=== PATIENT | female | born 1945 ===

== ENCOUNTER → 2020-03-17 14:16 | Outpatient (BNVA) | payer MEDICARE, SELFPAY | PROVIDERS: PCP Internal Medicine; Visit Provider Internal Medicine Gastroenterology | DX: Z76.89 Persons encountering health services in other specified circumstances (principal) | CPT/HCPCS: Q3014 ==

== ENCOUNTER → 2020-09-11 08:51 | Outpatient (BNVA) | payer MEDICARE, SELFPAY | PROVIDERS: Visit Provider Internal Medicine Gastroenterology | DX: R15.9 Full incontinence of feces (principal) | CPT/HCPCS: 99212 ==

== ENCOUNTER → 2022-06-03 10:44 | Outpatient (BNVA) | payer MEDICARE, SELFPAY | PROVIDERS: PCP Internal Medicine; Visit Provider Internal Medicine Gastroenterology | DX: R15.9 Full incontinence of feces (principal) | CPT/HCPCS: 99212 ==

== ENCOUNTER → 2022-06-29 09:59 | Outpatient (BNVA) | payer MEDICARE, SELFPAY | PROVIDERS: PCP Internal Medicine; Visit Provider Nurse Practitioner Family | DX: R15.9 Full incontinence of feces (principal); R32 Unspecified urinary incontinence | CPT/HCPCS: 99202 ==